=== PATIENT | male | born 1950 | race Caucasian/White ===

== ENCOUNTER 2017-11-17 18:29 | Observation (INO) | payer OTHER ==
[2017-11-17] MEDS ORDERED: ONDANSETRON 4 MG/2 ML VIAL IVP ONE ×2 (19:20→23:29)
--- NOTE | 2017-11-17 19:28 | EDPHY ---
H & P Time Seen by Provider: 11/17/17 18:40 HPI/ROS: HPI Nausea and vomiting. 67-year-old male by private vehicle. This patient reports he has a history of a hiatal hernia. For months he has had intermittent issues with eating and right after eating having nausea followed by vomiting. He has seen a hospital plan administrator at [facility]. He has an appointment tomorrow, Saturday, in their offices. He denies any associated abdominal pain. He is not feel that food gets stuck in his esophagus. He states that when food and nurses stomach he becomes nauseous. He reports that this has been happening today since eating breakfast this morning which included open meal in scrambled eggs. He reports that it seems of worse through the afternoon and he is now unable to keep water down. Denies any history of gastroparesis. He does not have any significant medical history other than noted below. ROS: Constitutional: No fever, no chills. No weakness. Eyes: No discharge. No changes in vision. ENT: No sore throat. No nasal congestion or rhinorrhea. Respiratory: No cough. No shortness of breath. Cardiac: No chest pain, no palpitations. Gastrointestinal: No abdominal pain, as above, no diarrhea. Genitourinary: No hematuria. No dysuria or increased frequency with urination. Musculoskeletal: No back pain. No neck pain. No myalgias or arthralgias. Skin: No rashes. Neurological: No headache. No focal weakness or altered sensation. Past medical history: Hiatal hernia, cholecystectomy, asthma. Social history: Nonsmoker. No alcohol. Here by himself. Physical Exam: General Appearance: Alert, no distress. This patient is responding to questions appropriately and in full sentences. This patient appears well- hydrated and well-nourished. Eyes: Pupils equal and round no pallor or injection. No lid edema, erythema or injection. Respiratory: There are no retractions, lungs are clear to auscultation with good air movement bilaterally. Cardiovascular: Regular rate and rhythm. No murmur. Gastrointestinal: Abdomen is soft and nontender on palpation throughout., no masses, bowel sounds normal. No focal tenderness at McBurney's point. No Alba sign. Neurological: Motor sensory function is grossly intact. Cranial nerves are normal. Gait is normal. Skin: Warm and dry, no rashes. Musculoskeletal: Neck is supple and nontender. Extremities are symmetrical. All joints range without pain or impingement. Psychiatric: No agitation. No depression. Database: EKG: Imaging: Upright abdominal series x-ray; no evidence of obstruction or free air. Interpreted by me. Procedures: Emergency department course: IV was placed. He was placed on a monitor. He was started on IV normal saline with 1 L to be given over the next hour. He was given 4 mg of IV Zofran initially. He has had an adverse reaction to Reglan in the past. 11:30 p.m., the patient has done well with IV Zofran in controlling his nausea. He received 2 L of IV normal saline. His hemoglobin and hematocrit or repeated and have come down considerably after IV fluids. At this time he is asking for discharge. He feels comfortable going home. He has been tolerating oral fluids without issue. I will send him home with oral Zofran. He has a follow-up appointment with his hospital plan administrator at 2:30 p.m. tomorrow. His repeat abdominal exam prior to discharge is soft, nontender nondistended. Return to emergency department precautions have been reviewed with him. All of his questions were answered. 11:50 p.m., the patient was being discharged by nursing staff. He was dressed and ready to go. He drank some fluid, he became nauseous and vomited a small amount of the fluid up. At this time I re-evaluated him. He is denying any abdominal pain. I explained that I would admit him to the hospitalist service for IV fluids and IV antiemetics overnight. Patient admitted to the hospitalist service in stable condition. Accepting physician is Dr. Tavarez. Differential Diagnosis: The differential diagnosis on this patient includes but is not limited to gastritis, chronic nausea, history of hiatal hernia, hemoconcentration. Bowel obstruction, perforated peptic ulcer unlikely. This represents a partial list of diagnoses considered. These considerations are based on history, physical exam, past history, reassessment and diagnostic testing. Smoking Status: Never smoked Constitutional: Initial Vital Signs Temperature (C) 36.9 C 11/17/17 18:30 Heart Rate 124 H 11/17/17 18:30 Blood Pressure 136/93 H 11/17/17 18:30 O2 Sat (%) 95 11/17/17 18:30 O2 Delivery Mode Room Air Allergies/Adverse Reactions: metoclopramide [From Reglan] Allergy (Verified 11/17/17 18:30) Home Medications: Medication Instructions Recorded Albuterol [Proventil Inhaler HFA 1 - 2 puffs IH DAILY PRN 11/17/17 (*)] Budesonide 90 Mcg INH [Pulmicort 2 puffs IH BID 11/17/17 90 Mcg Flexhaler (*)] Omeprazole [Prilosec 20 mg] 40 mg PO DAILY 11/17/17 Ondansetron Odt [Zofran Odt 4 mg 4 mg PO Q4PRN PRN #10 tab 11/17/17 (*)] Acetaminophen [Tylenol 325mg (*)] 650 mg PO Q4HRS PRN tab 11/18/17 Herbals/Supplements -Info Only 1 ea PO DAILY 11/18/17 Nautre-Throid 65mg 65 mg PO DAILY 11/18/17 hydrOXYzine HCL [Vistaril 10MG 10 - 20 mg PO DAILY PRN 11/18/17 (RX)] Medical Decision Making - Data Points Laboratory Results: Laboratory Results 11/17/17 22:20 11/17/17 18:46 Medications Given: Discontinued Medications Sodium Chloride (Ns) 1,000 mls @ 0 mls/hr IV EDNOW ONE; Wide Open PRN Reason: Protocol Stop: 11/17/17 20:24 Last Admin: 11/17/17 20:26 Dose: 1,000 mls Sodium Chloride (Ns) 1,000 mls @ 0 mls/hr IV EDNOW ONE; Wide Open PRN Reason: Protocol Stop: 11/17/17 20:24 Last Admin: 11/17/17 20:27 Dose: 1,000 mls Dextrose/Sodium Chloride (D5w 1/2 Ns) 1,000 mls @ 125 mls/hr IV CONT DARLYN Stop: 05/17/18 01:14 Last Admin: 11/18/17 01:47 Dose: 1,000 mls Ondansetron HCl (Zofran) 4 mg IVP EDNOW ONE Stop: 11/17/17 19:21 Last Admin: 11/17/17 19:31 Dose: 4 mg Ondansetron HCl (Zofran) 4 mg IVP EDNOW ONE Stop: 11/17/17 23:30 Last Admin: 11/17/17 23:32 Dose: 4 mg Ondansetron HCl (Zofran Odt 4 Mg Prepack#2) 1 btl SCOTT WYATT ONE Stop: 11/17/17 23:43 Last Admin: 11/18/17 00:07 Dose: Not Given Promethazine HCl (Phenergan) 6.25 - 12.5 mg IVP Q6HRS PRN PRN Reason: Nausea/Vomiting, Use 2nd Stop: 05/17/18 00:58 Last Admin: 11/18/17 01:47 Dose: 6.25 mg Departure - Departure Disposition: [facility] Clinical Impression: Vomiting, Hemoconcentration, Dehydration Condition: Fair
[2017-11-17 19:33] LABS: PLATELET COUNT 172 10^3/uL (150-400)
[2017-11-17] MEDS ORDERED: NS 1,000 ML IV ONE ×2 (20:23)
[2017-11-17] MEDS ORDERED: ONDANSETRON 4MG PREPACK#2 BTL TAKEHOME ONE (23:42)
[2017-11-18] MEDS ORDERED: LORazepam 2 MG/ML INJ IVP PRN (00:59)
[2017-11-18] MEDS ORDERED: ACETAMINOPHEN 325 MG TAB PO PRN (00:59)
[2017-11-18] MEDS ORDERED: ONDANSETRON 4 MG/2 ML VIAL IVP PRN (00:59)
[2017-11-18] MEDS ORDERED: PROMETHAZINE HCL 25 MG/ML INJ IVP PRN (00:59)
[2017-11-18] MEDS ORDERED: D5W 1/2 NS 1,000 ML IV SCH (01:15)
[2017-11-18 04:31] VITALS: RESP 16
[2017-11-18 05:27] LABS: PLATELET COUNT 143 10^3/uL (150-400)
[2017-11-18 08:21] VITALS: BP 112/73; PULSE 77; TEMP 97.7; O2SAT 92
--- NOTE | 2017-11-18 08:57 | GHP ---
[f rep st] HISTORY AND PHYSICAL DATE OF ADMISSION: 11/17/2017 SOURCE: Patient provides history, appears to be reliable. His electronic medical record was reviewed and case discussed with ED provider. CHIEF COMPLAINT: Nausea and vomiting. HISTORY OF PRESENT ILLNESS: This is a pleasant 67-year-old gentleman with past medical history significant for hiatal hernia diagnosed on EGD, asthma, hypothyroidism, who presents to the emergency department today with complaints of intractable nausea, vomiting that started earlier in the day. The patient denies any diarrhea. He reports some mild abdominal distention but no significant pain. Patient also with history of GERD and has attempted to make dietary changes, lifestyle changes, but has continued to have intermittent episodes of nausea and vomiting. The patient's nausea appears to be mostly postprandial. He does report compliance with PPI therapy. He is followed by [facility] and actually has appointment scheduled for later this afternoon. In the emergency department, the patient received multiple doses of Zofran, IV fluids, and Phenergan. REVIEW OF SYSTEMS: Negative except as noted above. ALLERGIES: Metoclopramide. HOME MEDICATIONS: As per EMR. Thyroid, Pulmicort, Prilosec, albuterol, Zofran ODT. PAST MEDICAL HISTORY: Significant for hiatal hernia, asthma, hypothyroidism. PAST SURGICAL HISTORY: Significant for cholecystectomy, EGD. FAMILY HISTORY: Negative for any GI disorders, cancer, or irritable bowel syndrome or disease. SOCIAL HISTORY: Patient is , lives with his . He denies any use of tobacco or illicit drugs. He does not use any marijuana. The patient reports occasional cocktail a few times a week, but nothing on a daily basis. CODE STATUS: Full. PHYSICAL EXAMINATION: VITAL SIGNS: Upon arrival to the emergency department, blood pressure 136/93, heart rate is 124, respiratory rate 18, O2 sat 95% on room air with a temperature 36.9. Vitals available at time of interview, blood pressure 108/71, heart rate is 88, respiratory rate 16, O2 sat 96% on room air with a temperature 37.1. GENERAL: No acute distress, pleasant adult gentleman is lying quietly in bed asleep. He wakes easily to name, is cooperative, but keeps his eyes closed for most of the interview. HEAD: Normocephalic, atraumatic. EYES: Extraocular muscles are grossly intact. Pupils equal, round , slightly decreased reactivity to light bilaterally and symmetric. No scleral icterus or conjunctival injection. ENT: Mucous membranes appear slightly dry. No oropharyngeal erythema or exudates. NECK: Supple. Trachea midline. CV: Regular rate and rhythm. No murmurs, rubs, or gallops appreciated. RESPIRATORY: Lungs clear to auscultation bilaterally. No wheezes, rales, or rhonchi. ABDOMEN: Slightly distended but soft. Nontender to palpation. No rebound, guarding, or masses appreciated. : No suprapubic tenderness to palpation. No Ma catheter in place. EXTREMITIES: Patient without any cyanosis, clubbing, or edema appreciated. Patient with 2+ pedal pulses. NEURO : Grossly nonfocal. No facial drooping. Patient is able to move all extremities while lying in bed. Strength overall is grossly normal. PSYCH: Patient awake, alert, and oriented x4. Affect slightly flat, but again he is keeping his eyes closed and is tired. LABORATORY STUDIES: WBC 8.29, H and H 21.3 and 61.4, MCV 93.2, platelet count 172, neutrophils of 81.7%. No bands. Sodium 138, potassium 4.5, chloride 105, CO2 of 17, anion gap 16, BUN 17, creatinine 0.9, GFR greater than 60, glucose 90 , calcium 9.5, total bili is 1.0, ALT 40, AST is 40, alk phos is 64, total protein 7.4, albumin 4.5, lipase is 222. Abdominal x-ray image report reviewed. Nonobstructive bowel gas pattern. Air- fluid level seen in the colon without distention. None seen in the small bowel. No evidence for free intraperitoneal air. Surgical clips in the right upper quadrant. Mild degenerative change of lumbar spine. ASSESSMENT AND PLAN: A pleasant 67-year-old gentleman presents with complaints of intractable nausea and vomiting. 1. Nausea, vomiting. Differential diagnosis including gastroenteritis versus gastroparesis versus small bowel obstruction or less likely gastric outlet obstruction. The patient's symptoms are currently controlled after Zofran and Phenergan. The patient reports at home he does not have any access to antiemetics, and he has run out and would appreciate this upon discharge. The patient does have an appointment this afternoon with his primary hospital receptionist on an outpatient basis and would like to maintain this appointment if possible now that his symptoms are controlled, and he has been IV fluid hydrated. 2. Abdominal distention. Patient with nonspecific bowel gas pattern but no evidence of obstruction. Again, differential and plan as noted above. 3. History of hiatal hernia and reflux. Continue with proton pump inhibitor. 4. Asthma without exacerbation. Continue patient's home medications once med rec available for review. 5. Hypothyroidism. Will check TSH this morning. 6. Polycythemia likely related to hemoconcentration. Continue with IV fluid hydration and repeat in the morning. 7. Fluid, electrolyte, nutrition: IV fluids overnight for supplementation. We will monitor electrolytes, replace if needed. Advance diet as tolerated once patient's nausea, vomiting symptoms are improved. 8. Prophylaxis. Sequential compression devices, holding anticoagulation unless patient should stay additional day. 9. Code status is full. 10. Disposition: Patient admitted to observation on the medical floor. Possibility for discharge later this morning. Discussed with the patient with plans to follow up on outpatient basis with GI. /[id number]/MODL [id number]
[2017-11-18] MEDS ORDERED: ALBUTEROL 60 PUFFS/8 GM MDI IH PRN (10:47)
[2017-11-18] MEDS ORDERED: hydrOXYzine HCL 10 MG TAB PO PRN (10:47)
--- NOTE | 2017-11-18 14:48 | GDS ---
[f rep st] DISCHARGE SUMMARY DISCHARGE DIAGNOSES: 1. Nausea and vomiting. 2. Abdominal distention. 3. Dehydration. STUDIES AND PROCEDURES: Abdominal x-ray. PHYSICAL EXAM: GENERAL: The patient is alert. VITAL SIGNS: Afebrile at 36.5, pulse 77, respirator y rate 16, blood pressure is 112/73, saturating 92% on room air. I have seen evaluated the patient on the day of discharge. HOSPITAL COURSE: The patient is a 67-year-old male who presented to the emergency room with complain ts of abdominal pain with nausea and vomiting. He was admitted to the hospital for further supportiv e management. His symptoms have completely resolved. He is feeling significantly better and he will be discharged home to follow up in the outpatient setting with his primary care physician as well as his community development worker of record. Noted during this hospitalization is polycythemia which the patie nt has a history of. He will continue his previously prescribed home medications in the outpatient s etting. PENDING STUDIES: There are none. DISCHARGE MEDICATIONS: Please refer to EMR form. He has been provided a prescription for Zofran at the time of discharge. /[id number]/MODL
[2017-11-18] MEDS ORDERED: BUDESONIDE 90 MCG MDI IH SCH (21:00)
[2017-11-19] MEDS ORDERED: NON-FORMULARY NEW DRUG (Omeprazole [Prilosec 20 Mg] 40 MG) PO SCH (09:00)
[2017-11-19] MEDS ORDERED: Herbals/Supplements -Info Only PO SCH (09:00)
[2017-11-19] MEDS ORDERED: PANTOPRAZOLE SODIUM 40 MG TAB PO SCH (09:00)
== END 2017-11-18 11:16 | disposition home or self-care (01) ==
LOC: F3N 11-18 01:07
PROVIDERS: ADMIT Family Medicine; ATTEND Family Medicine
DX: R11.2 Nausea with vomiting, unspecified (principal); E86.0 Dehydration; R14.0 Abdominal distension (gaseous); J45.909 Unspecified asthma, uncomplicated; E03.9 Hypothyroidism, unspecified; D75.1 Secondary polycythemia
CPT/HCPCS: 74018; G0378; J2405; J2550; 96374

== ENCOUNTER → 2017-11-22 | Outpatient (CLI) | payer OTHER | LOC: FIMAGING 08:00 | PROVIDERS: ATTEND Physician Assistant | DX: R11.2 Nausea with vomiting, unspecified (principal) | CPT/HCPCS: 78264; A9541 ==

== ENCOUNTER 2017-12-22 21:22 | Emergency (ER) | payer OTHER ==
[2017-12-22 21:28] VITALS: TEMP 97.9
[2017-12-22] MEDS ORDERED: ONDANSETRON 4 MG/2 ML VIAL IVP ONE (21:36)
[2017-12-22] MEDS ORDERED: NS 1,000 ML IV ONE ×2 (21:36→22:30)
--- NOTE | 2017-12-22 21:36 | EDPHY ---
H & P Stated Complaint: bloating, N/V, ?gastroparesis Time Seen by Provider: 12/22/17 21:25 HPI/ROS: HPI CHIEF COMPLAINT: Abdominal bloating, nausea, induced vomiting HISTORY OF PRESENT ILLNESS: Patient very pleasant 67-year-old male, he denies having any significant medical history however he states that for years he has been suffering from what he thinks his gastroparesis and abdominal bloating. He gets postprandial fullness and uncomfortable. He states recently he has been seen by GI of the [facility], last month headache normal gastric emptying study and had an EGD that showed a moderate hiatal hernia but no significant inflammation. He presents emergency room as he states that he ate at 1:30 a.m. In the afternoon and had macaroni and cheese, chicken, barbecue and ever since then has felt very bloated and nauseous. He states that he self-induced vomiting multiple times and this caused his back of his throat to get irritated and feel very painful. Describes a burning sensation. He denies any chest pain or shortness of breath. Denies lower abdominal pain. He denies any abdominal pain at this time. Denies chest pain or shortness of breath. Past Medical History: Gastroparesis, esophagitis, gastritis Past Surgical History: Denies significant surgical history Social History: Denies drugs alcohol tobacco. Family History: Noncontributory ROS REVIEW OF SYSTEMS: A comprehensive 10 point review of systems is otherwise negative aside from elements mentioned in the history of present illness. Exam Constitutional appears well nontoxic no acute distress, triage nursing summary reviewed, vital signs reviewed, awake/alert. Eyes normal conjunctivae and sclera, EOMI, PERRLA. HENT normal inspection, atraumatic, moist mucus membranes, no epistaxis, neck supple/ no meningismus, no raccoon eyes. Respiratory clear to auscultation bilaterally, normal breath sounds, no respiratory distress, no wheezing. Cardiovascular rate normal, regular rhythm, no murmur, no edema, distal pulses normal. Gastrointestinal soft, non-tender, no rebound, no guarding, normal bowel sounds, no distension, no pulsatile mass. Genitourinary no CVA tenderness. Musculoskeletal no midline vertebral tenderness, full range of motion, no calf swelling, no tenderness of extremities, no meningismus, good pulses, neurovascularly intact. Skin pink, warm, & dry, no rash, skin atraumatic. Neurologic awake, alert and oriented x 3, AAOx3, moves all 4 extremities equally, motor intact, sensory intact, CN II-XII intact, normal cerebellar, normal vision, normal speech. Psychiatric normal mood/affect. Heme/Lymph/Immune no lymphadenopathy. Differential diagnosis includes but is not limited to and in no particular order : Bowel obstruction, appendicitis, gallbladder disease, diverticulitis, colitis , enteritis, perforated viscus, gastritis, GERD, esophagitis, urinary tract infection, pyelonephritis, kidney stones Medical Decision Making: Plan for this patient IV established with IV fluid bolus, IV Pepcid 20 mg for antacid, GI cocktail, Zofran as needed for nausea, check basic blood work, EKG and troponin, re-evaluate. Re-evaluation: EKG interpretation by me on record in 3 Four 5 Group system. Impression time of EKG 2200, sinus rhythm rate of 81 left axis deviation present. No ST elevation or ST depression no significant T-wave abnormalities. No signs of cardiac arrhythmia otherwise unremarkable nonischemic EKG. 2342: Patient is feeling much better. He is requesting discharge. I did go over his blood work with him and notified him that he has a his concentrated H& H. I recommend he follows up his primary care doctor about this. Unclear if the concentrated H&H is actually causing some of his GI symptoms. His KUB is reviewed. Blood work reviewed. Nonischemic EKG. Normal troponin. Feels better after IV Pepcid. He has no chest pain or shortness of breath. Patient is requesting discharge. Zantac prescription provided. Return precautions discussed with him. Source: Patient - Personal History Current Tetanus/Diphtheria Vaccine: Yes Tetanus Vaccine Date: < 10 years - Medical/Surgical History Hx Asthma: Yes Hx Chronic Respiratory Disease: No Hx Diabetes: No Hx Cardiac Disease: No Hx Renal Disease: No Hx Cirrhosis: No Hx Alcoholism: No Hx HIV/AIDS: No Hx Splenectomy or Spleen Trauma: No Other PMH: hiatal hernia. [place], asthma - Social History Smoking Status: Never smoked Constitutional: Initial Vital Signs Temperature (C) 36.6 C 12/22/17 21:23 Heart Rate 102 H 12/22/17 21:23 Respiratory Rate 18 12/22/17 21:23 Blood Pressure 129/95 H 12/22/17 21:23 O2 Sat (%) 94 12/22/17 21:23 O2 Delivery Mode Room Air Allergies/Adverse Reactions: metoclopramide [From Reglan] Allergy (Verified 12/22/17 21:26) Home Medications: Medication Instructions Recorded Albuterol [Proventil Inhaler HFA 1 - 2 puffs IH DAILY PRN 11/17/17 (*)] Budesonide 90 Mcg INH [Pulmicort 2 puffs IH BID 11/17/17 90 Mcg Flexhaler (*)] Ondansetron Odt [Zofran Odt 4 mg 4 mg PO Q4PRN PRN #10 tab 11/17/17 (*)] Acetaminophen [Tylenol 325mg (*)] 650 mg PO Q4HRS PRN tab 11/18/17 Herbals/Supplements -Info Only 1 ea PO DAILY 11/18/17 Nautre-Throid 65mg 65 mg PO DAILY 11/18/17 hydrOXYzine HCL [Vistaril 10MG 10 - 20 mg PO DAILY PRN 11/18/17 (RX)] Ranitidine HCl [Zantac] 150 mg PO DAILY #30 tablet 12/22/17 Medical Decision Making - Diagnostics Imaging Results: Imaging Impressions Abdomen X-Ray 12/22/17 21:45 Impression: 1. No significant abnormality seen within the abdomen. - Data Points Laboratory Results: Laboratory Results 12/22/17 21:40 12/22/17 21:40 12/22/17 12/22/17 12/22/17 22:30 22:30 21:40 WBC RBC Hgb Hct MCV MCH MCHC RDW Plt Count MPV Neut % (Auto) Lymph % (Auto) [place] % (Auto) Eos % (Auto) Baso % (Auto) Nucleat RBC Rel Count Absolute Neuts (auto) Absolute Lymphs (auto) Absolute Monos (auto) Absolute Eos (auto) Absolute Basos (auto) Absolute Nucleated RBC Immature Gran % Immature Gran # PT 13.1 SEC SEC (12.0-15.0) INR 0.97 (0.83-1.16) APTT 27.7 SEC SEC (23.0-38.0) VBG Lactic Acid 1.6 mmol/L mmol/L (0.7-2.1) Sodium 139 mEq/L mEq/L (135-145) Potassium 4.1 mEq/L mEq/L (3.5-5.2) Chloride 101 mEq/L mEq/L (97-110) Carbon Dioxide 24 mEq/l mEq/l (22-31) Anion Gap 14 mEq/L mEq/L (8-16) BUN 16 mg/dL mg/dL (7-23) Creatinine 0.9 mg/dL mg/dL (0.7-1.3) Estimated GFR > 60 Glucose 78 mg/dL mg/dL (70-100) Calcium 9.1 mg/dL mg/dL (8.5-10.4) Total Bilirubin 0.7 mg/dL mg/dL (0.1-1.4) Conjugated Bilirubin 0.4 mg/dL mg/dL (0.0-0.5) Unconjugated Bilirubin 0.3 mg/dL mg/dL (0.0-1.1) AST 29 IU/L IU/L (17-59) ALT 43 IU/L IU/L (21-72) Alkaline Phosphatase 55 IU/L IU/L (38-126) Troponin I < 0.012 ng/mL ng/mL (0.000-0.034) Total Protein 7.1 g/dL g/dL (6.3-8.2) Albumin 4.3 g/dL g/dL (3.5-5.0) Lipase 235 IU/L IU/L (23-300) 12/22/17 12/22/17 21:40 21:40 WBC 8.59 10^3/uL 10^3/uL (3.80-9.50) RBC 6.31 10^6/uL 10^6/uL (4.40-6.38) Hgb 20.4 g/dL H* g/dL (13.7-17.5) Hct 58.3 % H % (40.0-51.0) MCV 92.4 fL fL (81.5-99.8) MCH 32.3 pg pg (27.9-34.1) MCHC 35.0 g/dL g/dL (32.4-36.7) RDW 13.7 % % (11.5-15.2) Plt Count 184 10^3/uL 10^3/uL (150-400) MPV 10.1 fL fL (8.7-11.7) Neut % (Auto) 57.1 % % (39.3-74.2) Lymph % (Auto) 27.2 % % (15.0-45.0) [place] % (Auto) 12.3 % % (4.5-13.0) Eos % (Auto) 2.4 % % (0.6-7.6) Baso % (Auto) 0.5 % % (0.3-1.7) Nucleat RBC Rel Count 0.0 % % (0.0-0.2) Absolute Neuts (auto) 4.90 10^3/uL 10^3/uL (1.70-6.50) Absolute Lymphs (auto) 2.34 10^3/uL 10^3/uL (1.00-3.00) Absolute Monos (auto) 1.06 10^3/uL H 10^3/uL (0.30-0.80) Absolute Eos (auto) 0.21 10^3/uL 10^3/uL (0.03-0.40) Absolute Basos (auto) 0.04 10^3/uL 10^3/uL (0.02-0.10) Absolute Nucleated RBC 0.00 10^3/uL 10^3/uL (0-0.01) Immature Gran % 0.5 % % (0.0-1.1) Immature Gran # 0.04 10^3/uL 10^3/uL (0.00-0.10) PT REJ INR TUB OPERATOR APTT REJ VBG Lactic Acid Sodium Potassium Chloride Carbon Dioxide Anion Gap BUN Creatinine Estimated GFR Glucose Calcium Total Bilirubin Conjugated Bilirubin Unconjugated Bilirubin AST ALT Alkaline Phosphatase Troponin I Total Protein Albumin Lipase Medications Given: Discontinued Medications Al Hydroxide/Mg Hydroxide (Maalox Susp) 30 ml PO ONCE ONE Stop: 12/22/17 21:43 Last Admin: 12/22/17 21:45 Dose: 30 ml Famotidine (Pepcid) 20 mg IVP EDNOW ONE Stop: 12/22/17 21:43 Last Admin: 12/22/17 21:46 Dose: 20 mg Hyoscyamine Sulfate (Levsin, Hyomax-Sl) 0.25 mg PO ONCE ONE Stop: 12/22/17 21:43 Last Admin: 12/22/17 21:46 Dose: 0.25 mg Sodium Chloride (Ns) 1,000 mls @ 0 mls/hr IV EDNOW ONE; Wide Open PRN Reason: Protocol Stop: 12/22/17 21:37 Last Admin: 12/22/17 21:46 Dose: 1,000 mls Sodium Chloride (Ns) 1,000 mls @ 0 mls/hr IV ONCE ONE PRN Reason: Wide Open Stop: 12/22/17 22:31 Last Admin: 12/22/17 23:09 Dose: 1,000 mls Lidocaine (Lidocaine 2% Viscous) 15 ml PO ONCE ONE Stop: 12/22/17 21:43 Last Admin: 12/22/17 21:45 Dose: 15 ml Ondansetron HCl (Zofran) 4 mg IVP EDNOW ONE Stop: 12/22/17 21:37 Last Admin: 12/22/17 21:46 Dose: 4 mg Departure - Departure Disposition: Home, Routine, Self-Care Clinical Impression: Vomiting Qualifiers: Vomiting type: unspecified Vomiting Intractability: intractable Nausea presence : with nausea Qualified Code(s): R11.2 - Nausea with vomiting, unspecified Condition: Good Instructions: Acute Nausea and Vomiting (ED) Additional Instructions: 1. Follow up with her primary care doctor. 2. Follow up with Gastroenterology. 3. Return emergency room if you have worsening symptoms questions or concerns. Referrals: NONE *PRIMARY CARE P,. [Primary Care Provider] - As per Instructions Prescriptions: Ranitidine HCl [Zantac] 150 mg PO DAILY #30 tablet
[2017-12-22] MEDS ORDERED: HYOSCYAMINE SULFATE 0.125 MG TAB PO ONE (21:42)
[2017-12-22] MEDS ORDERED: LIDOCAINE 2% VISCOUS 15 ML UDCUP PO ONE (21:42)
[2017-12-22] MEDS ORDERED: FAMOTIDINE 20 MG/2 ML SDV IVP ONE (21:42)
[2017-12-22] MEDS ORDERED: MAG HYDROX/AL HYDROX/SIMETH 30 ML UDCUP PO ONE (21:42)
[2017-12-22 21:50] VITALS: BP 149/85; RESP 16
--- NOTE | 2017-12-22 22:01 | CPEKG ---
Heart Rate: 81 RR Interval: 741 P-R Interval: 192 QRSD Interval: 90 QT Interval: 388 QTC Interval: 451 P [place]: 57 QRS [place]: -38 T Wave [place]: 52 EKG Severity - ABNORMAL ECG - EKG Impression: SINUS RHYTHM EKG Impression: JIAN, CONSIDER BIATRIAL ABNORMALITIES EKG Impression: LEFT AXIS DEVIATION Electronically Signed By: Debbie Peñaloza 22-Dec-2017 22:02:49
[2017-12-22 22:03] LABS: PLATELET COUNT 184 10^3/uL (150-400)
[2017-12-22 22:55] LABS: INR 0.97 (0.83-1.16); PROTIME(PATIENT) 13.1 SEC (12.0-15.0)
[2017-12-23 00:25] VITALS: PULSE 90; O2SAT 92
[2017-12-23] MEDS ORDERED: SUCRALFATE 1 GM/10 ML UDCUP PO SCH (07:30)
== END 2017-12-23 00:29 | disposition home or self-care (01) ==
LOC: EEVIPCON 21:22
DX: R11.2 Nausea with vomiting, unspecified (principal); J45.909 Unspecified asthma, uncomplicated; E86.9 Volume depletion, unspecified
CPT/HCPCS: 74018; 93005; 96361; 96374; 96375; 99285; J2405

== ENCOUNTER → 2018-02-19 | Outpatient (CLI) | payer OTHER | LOC: FIMAGING 07:38 | PROVIDERS: ATTEND Physician Assistant | DX: R11.2 Nausea with vomiting, unspecified (principal); Z90.49 Acquired absence of other specified parts of digestive tract ==

== ENCOUNTER → 2018-07-17 | Outpatient (CLI) | payer OTHER | LOC: FIMAGING 12:11 | PROVIDERS: ATTEND Family Medicine | DX: M25.511 Pain in right shoulder (principal) ==

== ENCOUNTER → 2019-03-26 | Outpatient (CLI) | payer OTHER | LOC: FIMAGING 11:53 ==